=== PATIENT | male | born 1955 | race Caucasian/White ===

== ENCOUNTER 2017-10-22 02:24 | Emergency (ER) | payer BC ==
[2017-10-22] MEDS ORDERED: NS 0.9% 1000 ML* 1,000 ML IV ONE (02:38)
[2017-10-22] MEDS ORDERED: Ondansetron INJ* 2 MG/ML VIAL IV ONE (02:38)
[2017-10-22] MEDS ORDERED: Morphine INJ* 4 MG/ML 1 ML CARPUJECT IV ONE (02:38)
[2017-10-22] MEDS ORDERED: Morphine VIAL* 4 MG/ML VIAL (1 ml vial) IV ONE ×2 (02:51→03:00)
[2017-10-22] MEDS ORDERED: Metoclopramide IV* 5 MG/ML 2 ML VIAL ONE (02:52)
[2017-10-22] MEDS ORDERED: Metoclopramide IV* 5 MG/ML 2 ML VIAL IV ONE (03:00)
[2017-10-22 03:02] LABS: ABS Basophils 0 10^3/ul (0-0.2); ABS Eosinophils 0.1 10^3/ul (0-0.6); ABS Lymphocytes 1.6 10^3/ul (1.0-4.8); ABS Monocytes 0.6 10^3/ul (0-0.8); ABS Neutrophils 3.7 10^3/ul (1.5-7.7); ABS Nucleated RBC 0 10^3/ul; Eosinophil % 1.8 % (0-6); Hematocrit 45 % (42-52); Hemoglobin 15.4 g/dl (14.0-18.0); Lymphocyte % 26.5 % (25-47); Mean Corpuscular HGB Conc 34 g/dl (31-36); Mean Corpuscular Hemoglobin 34 pg (27-31); Mean Corpuscular Volume 98 fL (80-94); Mean Platelet Volume 7.4 um3 (7.4-10.4); Nucleated Red Blood Cells % 0.1; Platelet Count 233 10^3/ul (150-450); Red Blood Count 4.57 10^6/ul (4.0-5.4); Red Cell Distribution Width 13 % (10.5-15)
[2017-10-22 03:12] LABS: INR 0.93 (0.77-1.02)
[2017-10-22 03:19] LABS: EGFR Non-African American 61.3 (>60)
[2017-10-22] MEDS ORDERED: Iohexol 300* (CONTRAST) 10 ML SDV IV ONE (04:01)
[2017-10-22] MEDS ORDERED: Bisacodyl SUPP* 10 MG SUPP PR ONE (04:37)
[2017-10-22] MEDS ORDERED: Magnesium CITRATE* 300 ML BTL PO ONE (04:37)
--- NOTE | 2017-10-22 04:41 | ED ---
Jono Mercado Tiffany, scribed for Sharif Malik MD on 10/22/17 at 0241 . Abdominal Pain/Male - HPI Summary HPI Summary: 62 y/o M presenting to [facility] complains of abdominal pain that began 2 hours ago. Rates the pain 9/10 in severity. Symptoms aggravated by coughing. Symptoms alleviated by nothing. Reports nausea. Denies vomiting, diarrhea. Pt had kale salad and fish for dinner. Has treated pain with pepto bismol without relief. No abd surgeries. - History of Current Complaint Chief Complaint: EDAbdPain Stated Complaint: ABD PAIN Time Seen by Provider: 10/22/17 02:33 Hx Obtained From: Patient Onset/Duration: Sudden Onset, Lasting Days - 2 hours, Still Present Severity Currently: Severe Pain Intensity: 9 Pain Scale Used: 0-10 Numeric Aggravating Factor(s): Other: - Coughing Alleviating Factor(s): Nothing Associated Signs And Symptoms: Positive: Nausea. Negative: Vomiting, Diarrhea - Allergies/Home Medications Allergies/Adverse Reactions: Allergies Allergy/AdvReac Type Severity Reaction Status Date / Time No Known Allergies Allergy Verified 10/22/17 02:30 PMH/Surg Hx/FS Hx/Imm Hx Previously Healthy: No Cardiovascular History: Reports: Hx Hypertension History: Denies: Hx Renal Disease Sensory History: Denies: Hx Deafness EENT History: Denies: Hx Deafness Psychiatric History: Denies: Hx Panic Disorder - Surgical History Surgery Procedure, Year, and Place: Colonoscopy Infectious Disease History: No Infectious Disease History: Denies: Traveled Outside the [place] in Last 30 Days - Family History Known Family History: Positive: Hypertension - Social History Alcohol Use: Occasionally Hx Substance Use: No Substance Use Type: Reports: None Smoking Status (MU): Unknown if Ever Smoked Review of Systems Negative: Fever Positive: Abdominal Pain, Nausea. Negative: Vomiting, Diarrhea All Other Systems Reviewed And Are Negative: Yes Physical Exam - Summary Physical Exam Summary: VITAL SIGNS: Reviewed. GENERAL: Patient is a well-developed and nourished (MALE OR FEMALE) who is lying comfortable in the stretcher. Patient is not in any acute respiratory distress. HEAD AND FACE: No signs of trauma. No ecchymosis, hematomas or skull depressions. No sinus tenderness. EYES: PERRLA, EOMI x 2, No injected conjunctiva, no nystagmus. EARS: Hearing grossly intact. Ear canals and tympanic membranes are within normal limits. MOUTH: Oropharynx within normal limits. NECK: Supple, trachea is midline, no adenopathy, no JVD, no carotid bruit, no c- spine tenderness, neck with full ROM. CHEST: Symmetric, no tenderness at palpation LUNGS: Clear to auscultation bilaterally. No wheezing or crackles. CVS: Regular rate and rhythm, S1 and S2 present, no murmurs or gallops appreciated. ABDOMEN: Diffuse abdominal tenderness. Hypoactive bowel sounds. EXTREMITIES: FROM in all major joints, no edema, no cyanosis or clubbing. NEURO: Alert and oriented x 3. No acute neurological deficits. Speech is normal and follows commands. SKIN: Dry and warm Triage Information Reviewed: Yes Vital Signs On Initial Exam: Initial Vitals Temp Pulse Resp BP Pulse Ox 96.9 F 71 22 165/95 100 10/22/17 02:28 10/22/17 02:28 10/22/17 02:28 10/22/17 02:28 10/22/17 02:28 Vital Signs Reviewed: Yes Diagnostics - Vital Signs Vital Signs Temp Pulse Resp BP Pulse Ox 10/22/17 02:28 96.9 F 71 22 165/95 100 - Laboratory Result Diagrams: 10/22/17 02:51 10/22/17 02:51 Lab Statement: Any lab studies that have been ordered have been reviewed, and results considered in the medical decision making process. - Radiology CXR Radiology Interpretation Completed By: ED Physician - No acute infiltrate. Pending official report. Abdomen Radiology Interpretation Completed By: ED Physician - Excess stool consistent with conspitation. Pending official report. - CT Abd/Pel CT Interpretation Completed By: Radiologist - No localizing signs for acute pathology. ED physician has reviewed this report. Re-Evaluation - Re-Evaluation First Eval Re-Evaluation Time: 04:36 Comment: Pt informed of CT abd/pel. Feels better, would like to go home. Abdominal Pain Fem Course/Dx - Course Course Of Treatment: 62 y/o M presenting to [facility] complains of abdominal pain that began 2 hours ago. Imaging and bloodwork obtained. Patient will be discharged home with follow up from primary care provider. - Diagnoses Provider Diagnoses: Constipation, Abdominal pain Discharge - Sign-Out/Discharge Documenting (check all that apply): Discharge/Admit/Transfer - Discharge Plan Condition: Stable Disposition: HOME Patient Education Materials: Constipation (ED), Abdominal Pain (ED) Referrals: Phill Mckinnon MD [Primary Care Provider] - 2 Days Additional Instructions: Follow up with your primary care provider in 1-2 days. Return to the Emergency Department for any new or worsening symptoms. The documentation as recorded by the Jono teague Tiffany accurately reflects the service I personally performed and the decisions made by , Sharif Malik MD.
[2017-10-22 05:00] VITALS: BP 153/98
--- NOTE | 2017-10-22 08:21 | RAD ---
INDICATION: Abdominal pain COMPARISON: None TECHNIQUE: Erect and supine views of the abdomen are submitted. FINDINGS: Bones: There are no acute bony findings. Soft tissues: The soft tissues appear normal. The psoas margins are sharp. Bowel gas pattern: Normal. There is moderate stool, however. Calcifications: There are no abnormal calcifications. Other: None IMPRESSION: MODERATE STOOL, OTHERWISE NEGATIVE.
--- NOTE | 2017-10-22 08:22 | RAD ---
INDICATION: Chest pain COMPARISON: None TECHNIQUE: PA and lateral dual-energy views were obtained. FINDINGS: Bones/Soft Tissues: There are no acute bony findings. Cardiomediastinal: The cardiomediastinal silhouette is normal. Lungs: There are no infiltrates. Pleura: There are no pleural effusions. Other: None IMPRESSION: NO ACTIVE DISEASE.
--- NOTE | 2017-10-22 09:19 | RAD ---
Indication: Abdominal pain. Contrast: Administered 100.1 ml of OMNIPAQUE 300 mg/ml. CT of the abdomen and pelvis was performed after IV contrast administration. Oral contrast was not given. The lung bases demonstrate no pleural fluid, nodules or masses. Heart is of normal size without evidence of pericardial effusion. The liver is normal in size. No focal lesions or intrahepatic duct dilatation is noted. The spleen is normal in size. No adrenal lesions are noted. The kidneys demonstrate no hydronephrosis. No retroperitoneal lymphadenopathy is noted. No dilated loops of bowel are noted. The colon is filled with stool. CT of the pelvis demonstrates no retroperitoneal or pelvic lymphadenopathy. The urinary bladder is otherwise unremarkable. No hernias are noted. The colon is filled with stool. Degenerative changes of the lumbar spine are noted. No sacral fractures are noted. IMPRESSION: No abnormal masses or fluid collections are noted. No evidence of abdominal aortic aneurysm is noted.
== END 2017-10-22 05:24 | disposition home or self-care (01) ==
LOC: ED 02:24
DX: K59.00 Constipation, unspecified (principal)
CPT/HCPCS: 36415; 71045; 74019; 74177; 80053; 82150; 83605; 83690; 83735; 85025; 85610; 85730; 86140; 96361; 96374; 96375; 99284; A9270-GY; J2270; J2765; Q9967